=== PATIENT | female | born 1955 | race Two or more races ===

== ENCOUNTER 2025-04-03 10:07 | Emergency (ER) | payer OTHER ==
[~2025-04-03] VITALS: Ht 162.6 cm; Wt 60.0 kg
--- NOTE | 2025-04-03 11:14 | ED.PDOC ---
Jaiden. trauma (HPI) HPI Comments This is a 60 year old female presenting to the ED with chief complaint of fall injury. Patient reports that she had fallen down her stairs about an hour ago, falling face first into the stairs. Patient relays that she now has pain to her bilateral arms, chest wall, neck, and face. Patient states she has history of D VT, but is currently only on ASA. Patient denies any LOC, dizziness, nausea, vomiting, or SOB. Chief Complaint: Fall Injury Time Seen by MD: 11:13 Reviewed notes: Nurses Notes, Medications, Allergies Allergies: Coded Allergies: Carbon Dioxide (Verified Allergy, Unknown, 04/03/25) Gabapentin (Verified Allergy, Unknown, 04/03/25) Oxycodone (Verified Allergy, Unknown, 04/03/25) Information Source: Patient, Relative (Child) Mode of Arrival: Ambulatory Severity: Moderate Timing: Hours Duration: Since onset Prehospital treatment: None Location: (R) Arm, (L) Arm, Face, Head, Neck Location of laceration: None Mechanism: Fall Past Medical History Past Medical History (Other): DVT Surgical History (Other): Right knee replacement SHEET METAL FORMER History: Denies all SHEET METAL FORMER Hx Family History Family History: Reviewed,noncontributory to illness Social History Smoker: Non-Smoker Alcohol: Denies ETOH Use Drugs: Denies Drug Use Lives In: Home Constitutional: denies: chills, diaphoresis, fatigue, fever, malaise, sweats, weakness, others EENTM: denies: blurred vision, double vision, ear bleeding, ear discharge, ear drainage, ear pain, ear ringing, eye pain, eye redness, hearing loss, mouth pain, mouth swelling, nasal discharge, nose bleeding, nose congestion, nose pain, photophobia, tearing, throat pain, throat swelling, voice changes, others Respiratory: denies: cough, hemoptysis, orthopnea, SOB at rest, shortness of breath, SOB with excertion, stridor, wheezing, others Cardiovascular: reports: chest pain; denies: dizzy spells, diaphoresis, Dyspnea on exertion, edema, irregular heart beat, left arm pain, lightheadedness, palpitations, PND, syncope, others Gastrointestinal: denies: abdomen distended, abdominal pain, blood streaked bowels, constipated, diarrhea, dysphagia, difficulty swallowing, hematemesis, melena, nausea, poor appetite, poor fluid intake, rectal bleeding, rectal pain, vomiting, others Genitourinary: denies: abnormal vagina bleeding, burning, dyspareunia, dysuria, flank pain, frequency, hematuria, incontinence, pain, , vagina discharge, urgency, others Neurological: denies: dizziness, fainting, headache, left sided numbness, left sided weakness, numbness, paresthesia, pre-existing deficit, right sided numbness, right sided weakness, seizure, speech problems, tingling, tremors, weakness, others Musculoskeletal: reports: neck pain, others (Bilateral arm pain, facial pain); denies: back pain, gout, joint pain, joint swelling, muscle pain, muscle stiffness Integumetry: reports: bruises; denies: change in color, change in hair/nails, dryness, laceration, lesions, lumps, rash, wounds, others Allergic/Immunocompromised: denies: Difficulty Healing, Frequent Infections, Hives, Itching, others Hematologic/Lymphatic: denies: anemia, blood clots, easy bleeding, easy bruising, swollen glands, others Endocrine: denies: excessive hunger, excessive sweating, excessive thirst, excessive urination, flushing, intolerance to cold, intolerance to heat, unexplained weight gain, unexplained weight loss, others Psychiatric: denies: anxiety, bipolar disorder, depression, hopeless, panic disorder, schizophrenia, sleepless, suicidal, others All Other Systems: Reviewed and Negative Physical Exam General Appearance: No Apparent Distress, Normal HEENT: Normal ENT Inspection, Pharynx Normal, TMs Normal Neck: Full Range of Motion, Non-Tender, Normal, Normal Inspection Respiratory: Chest Non-Tender, Lungs Clear, No Accessory Muscle Use, No Respiratory Distress, Normal Breath Sounds Cardiovascular: No Edema, No JVD, No Murmur, No Gallop, Normal Peripheral Pulses, Regular Rate/Rhythm Breast Exam: Deferred Gastrointestinal: No Organomegaly, Non Tender, No Pulsatile Mass, Normal Bowel Sounds, Soft Genitalia: Deferred Pelvic: Deferred Rectal: Deferred Extremities: No calf tenderness, Normal capillary refill, Normal inspection, Normal range of motion, Non-tender, No pedal edema Musculoskeletal : Apperance: Normal Neurologic: Alert, center mgr II-XII nml as Tested, No Motor Deficits, Normal Affect, Normal Mood, No Sensory Deficits Cerebellar Function: Normal Reflexes: Normal Skin: Dry, Normal Color, Warm Lymphatic: No Adenopathy Was a procedure done? Was a procedure done?: No Differential Diagnosis Multiple Trauma: Fractures, Contusion X-Ray, Labs, Meds, VS Vital Signs Date Time Temp Pulse Resp B/P (MAP) Pulse Ox O2 Delivery O2 Flow Rate FiO2 04/03/25 10:09 98.9 85 16 127/69 96 98.9 Current Medications Medications (Trade) Dose Ordered Sig/Leilani Route Start Time Stop Time Status Last Admin Acetaminophen/ Hydrocodone Bitart ([place] 5/325MG Tab) 1 tab ONCE ONCE PO 04/03/25 12:45 04/03/25 13:09 DC 04/03/25 13:31 Time of 1ST Reevaluation: 12:12 Reevaluation 1ST: Unchanged Patient Education/Counseling: Diagnosis, Treatment Family Education/Counseling: Diagnosis, Treatment Departure 1 Departure Time of Disposition: 13:31 (Patient fell and with benign CT and chest x-ray) Impression: Primary Impression: Fall Additional Impression: Migraine Disposition: HOME / SELF CARE / HOMELESS Condition: Stable Additional Instructions: You fell today. Fortunately you were not seriously injured. Your workup today was benign. You may be more sore than normal for the next few days. For pain you can take the followinam: Ibuprofen 400mg with food Noon: Acetaminophen 1000mg 4pm: Ibuprofen 400mg with food 8pm: Acetaminophen 1000mg You should follow up with your regular doctor within one week. If your symptoms worsen or you have any other concerns then please return to the emergency room. Discharged With: Self Critical Care Note Critical Care Time?: No Stability Stability form required: No Heart Score Heart Score: Heart Score Response (Comments) Value History N/A 0 EKG N/A 0 Age N/A 0 Risk Factors N/A 0 Troponin N/A 0 Total 0 I personally scribed for SHANICE HI MD ([email or web address]) on 04/03/25 at 11:14. Electronically submitted by Jordan Glass ([email or web address]). SHANICE HI MD Apr 03, 2025 11:14
--- NOTE | 2025-04-03 11:45 | DVH ---
EXAM: CT HEAD WITHOUT CONTRAST HISTORY: fall COMPARISON: None TECHNIQUE: Noncontrast axial CT images of the head were performed. Sagittal and coronal reformatted i mages were obtained. This CT exam was performed using 1 or more of the following dose reduction techn iques: Automated exposure control, adjustment of the mA and/or kv according to patient size, or the u se of iterative reconstruction techniques. Radiation Dose: CTDI volume is 52.48 mGy. Dose-length product is 734.73 mGy*cm FINDINGS: No intracranial hemorrhage, mass, midline shift, hydrocephalus, or evidence of acute large vessel inf arct. There is a tiny cavum septum pellucidum. There is mild mucosal thickening of the bilateral ethm oid sinuses. The bilateral mastoid air cells and middle ear spaces are clear. No cranial fracture or scalp edema. IMPRESSION: 1. No acute intracranial process. 2. Mild ethmoid sinus disease. The paranasal sinuses are not fully imaged here
--- NOTE | 2025-04-03 13:17 | DVH ---
XY CHEST TWO VIEWS ROUTINE CLINICAL HISTORY: fall COMPARISON: None TECHNIQUE: Frontal and lateral view of the chest was obtained FINDINGS: Lines and Tubes: None Lungs: No focal consolidation. Pleura: No effusion. No pneumothorax. Cardiomediastinal contours: Unremarkable Bones: No acute osseous abnormality. Kyphoplasty with in mid thoracic spine IMPRESSION: No acute cardiopulmonary disease. Indication knee
[2025-04-03] MEDS: HYDROcodone-ACET 5/325MG TAB PO ONE ×2 (13:31→14:39)
[2025-04-03 14:13] VITALS: BP 120/51; PULSE 71; RESP 17; TEMP 98.1
[2025-04-03] MEDS ORDERED: HYDR-4798 PO (14:21)
[2025-04-03 14:40] VITALS: O2SAT 97
== END 2025-04-03 14:44 | disposition home or self-care (01) ==
LOC: EDBD 10:07 → ER 10:07
DX: G43.909 Migraine, unspecified, not intractable, without status migrainosus (principal); Z96.651 Presence of right artificial knee joint; Z88.8 Allergy status to other drugs, medicaments and biological substances; Z88.5 Allergy status to narcotic agent; Z86.718 Personal history of other venous thrombosis and embolism; W10.9XXA Fall (on) (from) unspecified stairs and steps, initial encounter; Y93.89 Activity, other specified; Y92.89 Other specified places as the place of occurrence of the external cause; Y99.8 Other external cause status
CPT/HCPCS: 70450; 71046